=== PATIENT | female | born 1955 | race African-American/Black ===

== ENCOUNTER 2019-08-05 03:14 | Emergency (ER) | payer MEDICARE, OTHER ==
[~2019-08-05] VITALS: Ht 172.7 cm; Wt 190.5 kg
[2019-08-05 03:56] LABS: BASO # 0.1 x10^3/uL (0.0-0.2); BASO % 1 % (0-3); EOS # 0.3 x10^3/uL (0.0-0.7); EOS % 2 % (0-3); HEMATOCRIT 42.9 % (36.0-47.0); HEMOGLOBIN 14.1 g/dL (12.0-15.5); LYMPH # 1.7 x10^3/uL (1.0-4.8); LYMPH % 14 % (24-48); MEAN CORPUSCULAR HEMOGLOBIN 26 pg (25-35); MEAN CORPUSCULAR HGB CONC 33 g/dL (31-37); MEAN CORPUSCULAR VOLUME 78 fL (79-100); MONO # 0.7 x10^3/uL (0.0-1.1); MONO % 6 % (0-9); NEUT # 9.6 x10^3/uL (1.8-7.7); NEUT % 77 % (31-73); PLATELET COUNT 409 x10^3/uL (140-400); RED BLOOD COUNT 5.51 x10^6/uL (3.50-5.40); RED CELL DISTRIBUTION WIDTH 18.2 % (11.5-14.5); WHITE BLOOD COUNT 12.3 x10^3/uL (4.0-11.0)
[2019-08-05] MEDS ORDERED: ASPIRIN 325 MG TABLET PO ONE (04:00)
[2019-08-05 04:06] LABS: PROTHROMBIN TIME PATIENT 13.7 SEC (11.7-14.0)
[2019-08-05 04:08] LABS: CALCIUM 9.7 mg/dL (8.5-10.1); CREATININE 1.3 mg/dL (0.6-1.0); GFR 41.1; POTASSIUM 3.8 mmol/L (3.5-5.1)
[2019-08-05 04:14] LABS: ALBUMIN 3.4 g/dL (3.4-5.0); ALBUMIN/GLOBULIN RATIO 0.7 (1.0-1.7); MAGNESIUM 1.8 mg/dL (1.8-2.4); TOTAL BILIRUBIN 0.4 mg/dL (0.2-1.0)
--- NOTE | 2019-08-05 04:26 | RAD ---
AP chest x-ray HISTORY: Chest pain. FINDINGS: Mild cardiomegaly. Aortic arch calcified plaque as well as tortuosity of the descending aorta. No pneumothorax, pulmonary opacities or pleural effusions. Thoracic scoliosis. IMPRESSION: No acute process. Electronically signed by: Herberth Aguilar MD (08/05/2019 4:23 AM) [facility]
[2019-08-05 04:33] LABS: CREATINE KINASE 20 U/L (26-192)
[2019-08-05] MEDS ORDERED: BUTALB/APAP/CAFEIN 50/325/40MG TABLET. PO ONE (04:45)
[2019-08-05] MEDS ORDERED: DEXAMETHASONE SOD PHOS 20 MG/5 ML VIAL. IV ONE (04:45)
[2019-08-05] MEDS ORDERED: FUROSEMIDE 20 MG/2 ML VIAL. IVP ONE (05:15)
[2019-08-05] MEDS ORDERED: BUTA1TAB23 PO (05:45)
--- NOTE | 2019-08-05 05:46 | PHYS DOC ---
Past Medical History Past Medical History: A-Fib, Bipolar, Hypertension Additional Past Medical Histor: LIVER CIRROSIS,"ABD CIRROSIS",D/C,MORBID OBESITY (ANNE ESCOBAR DO) Past Surgical History: Hysterectomy, Other Additional Past Surgical Histo: LAP BAND, D/C (ANNE ESCOBAR DO) Smoking: Quit Greater Than 1 Year Alcohol Use: None Drug Use: None (ANNE ESCOBAR DO) Adult General Chief Complaint Chief Complaint: CHEST PAIN HPI HPI 64-year-old female presents from [facility] with three-hour history of left-sided chest discomfort after patient had been coughing up some clear sputum. Patient also reports some associated gagging. Reports headache. Denies increased lower extremity edema. Denies calf tenderness. Denies history of DVT/PE. Patient with cardiac risk factors of former smoking and hypertension. Patient does report history of her son dying from cocaine induced cardiac event. Denies fever/chills. Denies trauma. Denies known sick contacts. (ANNE ESCOBAR DO) Review of Systems Review of Systems Constitutional: Denies fever or chills Eyes: Denies redness or eye pain HENT: Denies nasal congestion or sore throat; reports left earache Respiratory: Reports productive cough; denies shortness of breath Cardiovascular: Reports chest pain; denies palpitations GI: Denies abdominal pain; reports some nausea with vomiting : Denies dysuria or hematuria Musculoskeletal: Denies back pain or joint pain Integument: Denies rash or skin lesions Neurologic: Reports headache and dizziness; denies focal weakness or sensory changes Complete systems were reviewed and found to be within normal limits, except as documented in this note. (ANNE ESCOBAR DO) Current Medications Current Medications Current Medications Medications (Trade) Dose Ordered Sig/Ian Start Time Stop Time Status Last Admin Dose Admin Acetaminophen/ Butalbital/ Caffeine (Fioricet) 2 tab 1X ONCE 08/05/19 04:45 08/05/19 04:46 DC 08/05/19 05:13 2 TAB Aspirin (Sneha Aspirin) 325 mg 1X ONCE 08/05/19 04:00 08/05/19 04:05 DC 08/05/19 05:13 325 MG Dexamethasone Sodium Phosphate (Decadron) 10 mg 1X ONCE 08/05/19 04:45 08/05/19 04:46 DC 08/05/19 05:13 10 MG Furosemide (Lasix) 20 mg 1X ONCE 08/05/19 05:15 08/05/19 05:16 DC 08/05/19 05:13 20 MG (ROLO BOWMAN MD) Allergies Allergies Allergies Coded Allergies Type Severity Reaction Last Updated Verified methyldopa Allergy Unknown 08/05/19 Yes (ROLO BOWMAN MD) Physical Exam Physical Exam Constitutional: Well developed, well nourished, no acute distress, non-toxic appearance, anxious, morbidly obese HENT: Normocephalic, atraumatic, oropharynx moist Eyes: PERRL, EOMI, conjunctiva normal, no discharge Neck: Normal range of motion, no tenderness, supple, no meningeal signs Cardiovascular: Heart rate normal, irregularly irregular rhythm Lungs & Thorax: Bilateral breath sounds clear to auscultation, no wheezing Abdomen: Soft, no tenderness Skin: Warm, dry, no erythema, no rash Extremities: No tenderness, ROM intact, no edema Neurologic: Alert and oriented X 3, normal motor function, normal sensory function, no focal deficits noted Psychologic: Affect anxious, judgement normal (ANNE ESCOBAR DO) Current Patient Data Vital Signs Vital Signs Date Time Temp Pulse Resp B/P (MAP) Pulse Ox O2 Delivery O2 Flow Rate FiO2 08/05/19 07:25 72 116/73 (87) 97 Room Air 08/05/19 03:14 98.0 20 98.0 (ROLO BOWMAN MD) Lab Values Laboratory Tests Test 08/05/19 03:45 08/05/19 06:15 White Blood Count 12.3 x10^3/uL (4.0-11.0) H Red Blood Count 5.51 x10^6/uL (3.50-5.40) H Hemoglobin 14.1 g/dL (12.0-15.5) Hematocrit 42.9 % (36.0-47.0) Mean Corpuscular Volume 78 fL (79-100) L Mean Corpuscular Hemoglobin 26 pg (25-35) Mean Corpuscular Hemoglobin Concent 33 g/dL (31-37) Red Cell Distribution Width 18.2 % (11.5-14.5) H Platelet Count 409 x10^3/uL (140-400) H Neutrophils (%) (Auto) 77 % (31-73) H Lymphocytes (%) (Auto) 14 % (24-48) L Monocytes (%) (Auto) 6 % (0-9) Eosinophils (%) (Auto) 2 % (0-3) Basophils (%) (Auto) 1 % (0-3) Neutrophils # (Auto) 9.6 x10^3/uL (1.8-7.7) H Lymphocytes # (Auto) 1.7 x10^3/uL (1.0-4.8) Monocytes # (Auto) 0.7 x10^3/uL (0.0-1.1) Eosinophils # (Auto) 0.3 x10^3/uL (0.0-0.7) Basophils # (Auto) 0.1 x10^3/uL (0.0-0.2) Prothrombin Time 13.7 SEC (11.7-14.0) Prothrombin Time INR 1.1 (0.8-1.1) Sodium Level 137 mmol/L (136-145) Potassium Level 3.8 mmol/L (3.5-5.1) Chloride Level 99 mmol/L (98-107) Carbon Dioxide Level 28 mmol/L (21-32) Anion Gap 10 (6-14) Blood Urea Nitrogen 22 mg/dL (7-20) H Creatinine 1.3 mg/dL (0.6-1.0) H Estimated GFR (Cockcroft-Gault) 41.1 BUN/Creatinine Ratio 17 (6-20) Glucose Level 163 mg/dL (70-99) H Calcium Level 9.7 mg/dL (8.5-10.1) Magnesium Level 1.8 mg/dL (1.8-2.4) Total Bilirubin 0.4 mg/dL (0.2-1.0) Aspartate Amino Transferase (AST) 17 U/L (15-37) Alanine Aminotransferase (ALT) 22 U/L (14-59) Alkaline Phosphatase 81 U/L (46-116) Creatine Kinase 20 U/L (26-192) L Creatine Kinase MB (Mass) < 0.5 ng/mL (0.0-3.6) Creatine Kinase MB Relative Index % (0-4) Troponin I Quantitative < 0.017 ng/mL (0.000-0.055) < 0.017 ng/mL (0.000-0.055) YF-Wic-H-Type Natriuretic Peptide 2307 pg/mL (0-124) H Total Protein 8.0 g/dL (6.4-8.2) Albumin 3.4 g/dL (3.4-5.0) Albumin/Globulin Ratio 0.7 (1.0-1.7) L Lipase 129 U/L (73-393) Laboratory Tests 08/05/19 03:45 Laboratory Tests 08/05/19 03:45 (ROLO BOWMAN MD) EKG EKG @0323 Afib at 82bpm, NO ST elevation, nonspecific t wave inversion I and avL and V2-V6 (ANNE ESCOBAR DO) Radiology/Procedures Radiology/Procedures PROCEDURE: CHEST AP ONLY AP chest x-ray HISTORY: Chest pain. FINDINGS: Mild cardiomegaly. Aortic arch calcified plaque as well as tortuosity of the descending aorta. No pneumothorax, pulmonary opacities or pleural effusions. Thoracic scoliosis. IMPRESSION: No acute process. Electronically signed by: Herberth Aguilar MD (08/05/2019 4:23 AM) [facility] (ANNE ESCOBAR DO) Course & Med Decision Making Course & Med Decision Making Pertinent Labs and Imaging studies reviewed. (See chart for details) Patient presents with history of atypical chest pain after "gagging"/coughing up some clear sputum early this AM. EKG stable. Hx of afib. Labs obtained and posted to chart. Initial troponin WNL. HEART score 4. BNP elevated to 2300. CXR stable. Patient also with headache. Symptomatic treatment provided. Lasix given. Patient offered admission for further evaluation and treatment. Patient requesting to be discharge home with close outpatient follow-up. Repeat troponin pending. If repeat troponin WNL, patient may be discharge home. Discharge paperwork printed and Rx for Uri signed by myself. Sign out given to Dr. Bowman for follow-up on repeat troponin. If elevated patient will be admitted, otherwise with plan for discharge. Discussed current findings and plan with patient, who acknowledges understanding and agreement. (ANNE ESCOBAR DO) Course & Med Decision Making 2nd set of cardiac enzyme negative, planned for dc back to [facility]. (ROLO BOWMAN MD) Dragon Disclaimer Dragon Disclaimer This electronic medical record was generated, in whole or in part, using a voice recognition dictation system. (ANNE ESCOBAR DO) Departure Departure Impression: Primary Impression: Chest pain Additional Impressions: Headache Dizziness Disposition: 01 HOME, SELF-CARE Condition: STABLE Referrals: UNKNOWN PCP NAME (PCP) STEVE KRAUS MD Patient Instructions: Chest Pain (Nonspecific), [id number], Dizziness, Cruw-fl-[id number], Headache, FAQs Scripts Butalb/Acetaminophen/Caffeine ([id number] 50-325-40) 1 Each Tablet 1 EACH PO Q6HRS PRN for HEADACHE, #14 TAB Prov: ANNE ESCOBAR DO 08/05/19 The HEART Score for CP Pts HEART Score for Chest Pain: HEART Score for Chest Pain Response (Comments) Value History Slighlty/Non-Suspicious 0 ECG Nonspecific Repolarizatio 1 Age >45 - < 65 1 Risk Factors >3 Risk Factors or Hx CAD 2 Troponin < Normal Limit 0 Total 4 Risk Factors: Risk Factors: DM, Current or recent (<one month) smoker, HTN, HLP, family hi story of CAD, obesity. Risk Scores: Score 0 - 3: 2.5% MACE over next 6 weeks - Discharge Home Score 4 - 6: 20.3% MACE over next 6 weeks - Admit for Clinical Observation Score 7 - 10: 72.7% MACE over next 6 weeks - Early Invasive Strategies (ANNE ESCOBAR DO) Problem Qualifiers Primary Impression: Chest pain Chest pain type: unspecified Qualified Codes: R07.9 - Chest pain, unspecified Additional Impressions: Headache Headache type: unspecified Headache chronicity pattern: acute headache Intractability: not intractable Qualified Codes: R51 - Headache ANNE ESCOBAR DO Aug 05, 2019 05:45 ROLO BOWMAN MD Aug 05, 2019 09:43
--- NOTE | 2019-08-05 06:15 | EKG ---
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
[2019-08-05 07:25] VITALS: BP 116/73
== END 2019-08-05 08:30 | disposition home or self-care (01) ==
LOC: ER 03:14
DX: R07.89 Other chest pain (principal); R42 Dizziness and giddiness; R51 Headache; R05 Cough; I48.91 Unspecified atrial fibrillation; F31.9 Bipolar disorder, unspecified; I10 Essential (primary) hypertension; E66.01 Morbid (severe) obesity due to excess calories; Z68.44 Body mass index [BMI] 60.0-69.9, adult; Z90.710 Acquired absence of both cervix and uterus; Z87.891 Personal history of nicotine dependence; Z88.8 Allergy status to other drugs, medicaments and biological substances
CPT/HCPCS: 36415; 71045; 80053; 82553; 83690; 83735; 83880; 84484; 85025; 85610; 93005; 96374; 96375; 99285; J1100; J1940